=== PATIENT | female | born 1995 | race Asian ===

== ENCOUNTER 2016-11-19 20:26 | Observation (INO) | payer OTHER ==
[~2016-11-19] VITALS: Ht 152.4 cm; Wt 46.0 kg
[2016-11-19] MEDS ORDERED: ALPR0.257 SL (20:45)
[2016-11-19] MEDS ORDERED: SERT50TA5 PO (20:45)
[2016-11-19 21:05] LABS: DAU SCREEN DISCLAIMER
[2016-11-19 21:07] LABS: HEMATOCRIT 42.2 % (34.6-47.8); HEMOGLOBIN 13.9 g/dL (11.7-16.4); WHITE BLOOD COUNT 8.1 x10^3/uL (4.5-13.2)
[2016-11-19 21:19] LABS: ASPARTATE AMINO TRANSFERASE 18 U/L (15-37); BLOOD UREA NITROGEN 12 mg/dL (7-18)
[2016-11-19 21:30] LABS: ACETAMINOPHEN < 2 mcg/mL (10-30)
[2016-11-20] MEDS ORDERED: DIPHENHYDRAMINE 50 MG CAPSULE PO PRN
[2016-11-20] MEDS ORDERED: ALPRAZOLAM 0.25 MG SL PRN
[2016-11-20 00:59] VITALS: BP 147/97
[2016-11-20] MEDS: ZIPRASIDONE 20MG CAPSULE PO PRN ×2 (02:37→20:56)
[2016-11-20 08:18] VITALS: BP 131/86
[2016-11-20] MEDS ORDERED: SERTRALINE 50MG TABLET PO SCH (09:00)
[2016-11-20] MEDS ORDERED: DOCUSATE 100 MG CAPSULE PO PRN ×2 (14:30)
[2016-11-20] MEDS ORDERED: ONDANSETRON ODT 4 MG PO PRN ×2 (14:30)
[2016-11-20] MEDS ORDERED: ACETAMINOPHEN 325 MG TABLET PO PRN ×2 (14:30)
[2016-11-20 19:48] VITALS: BP 138/87
[2016-11-20] MEDS: DIPHENHYDRAMINE 50 MG CAPSULE PO PRN ×2 (21:27→22:34)
[2016-11-21] MEDS: DIPHENHYDRAMINE 50 MG CAPSULE PO PRN ×2 (02:28→20:34)
[2016-11-21 07:25] VITALS: BP 141/87
[2016-11-21] MEDS: SERTRALINE 50MG TABLET PO SCH (08:16)
[2016-11-21] MEDS ORDERED: ZIPRASIDONE 20 MG INJ IM ONE (13:00)
[2016-11-21 20:27] VITALS: BP 135/90
[2016-11-22 08:15] VITALS: BP 157/103
[2016-11-22] MEDS ORDERED: ZIPRASIDONE 20 MG INJ IM PRN (10:00)
[2016-11-22] MEDS: SERTRALINE 50MG TABLET PO SCH (10:57)
[2016-11-22] MEDS: ZIPRASIDONE 20MG CAPSULE PO PRN (17:26)
[2016-11-22 19:45] VITALS: BP 125/83
== END 2016-11-22 20:47 ==
LOC: ED 20:39 → EDIP 23:45 → SUATTDRO 23:46 → 3E 11-20 00:48
PROVIDERS: ADMIT Family Medicine; ATTEND Internal Medicine
DX: F20.0 Paranoid schizophrenia (principal); F99 Mental disorder, not otherwise specified; F41.8 Other specified anxiety disorders
CPT/HCPCS: 36415; 80053; 80307; 80329; 84703; 85025; 96372; 99285; G0378; J3486; G0480